=== PATIENT | male | born 1955 | race Caucasian/White ===

== ENCOUNTER 2020-06-03 07:28 | Outpatient (CLI) | payer OTHER | END 2020-06-03 23:59 | disposition home or self-care (01) | LOC: EDBD → CVU 07:28 | PROVIDERS: ATTEND Orthopaedic Surgery | DX: I08.0 Rheumatic disorders of both mitral and aortic valves (principal); I11.9 Hypertensive heart disease without heart failure; I48.91 Unspecified atrial fibrillation | CPT/HCPCS: 93005; 93306; 93356 ==